=== PATIENT | female | born 1995 | race Caucasian/White ===

== ENCOUNTER 2017-07-13 22:51 | Emergency (ER) | payer OTHER ==
[2017-07-13 22:54] VITALS: BP 140/91; PULSE 69; RESP 18; TEMP 98.3; O2SAT 98
[2017-07-13 23:20] VITALS: BP 136/86; PULSE 73; RESP 16; O2SAT 94
[2017-07-13] MEDS ORDERED: METF1000 PO (23:26)
[2017-07-13] MEDS ORDERED: BUPR150XL PO (23:26)
[2017-07-13] MEDS ORDERED: SPIR100T PO (23:26)
[2017-07-13 23:42] LABS: BILIRUBIN, URINE NEG (NEG); BLOOD, URINE LARGE (NEG); GLUCOSE,URINE NEG (NEG); KETONE, URINE 40 mg/dL (NEG); NITRITE,URINE NEG (NEG); URINE LEUKOCYTE ESTERASE NEG (NEG)
--- NOTE | 2017-07-13 23:42 | PD ---
HPI Chief Complaint: Abdominal Pain Time Seen by Provider: 23:28 Travel History International Travel<30 days: No Contact w/Intl Traveler<30days: No Traveled to known affect area: No History of Present Illness HPI The patient is a 22-year-old female that complains of right flank pain for 14 hours. She also has urinary frequency and urgency as well as some dysuria. She states the pain intensity as a 7/10. She states it is a constant stabbing pain. She denies any nausea, vomiting or fever. She states there is no possibility of , she is not sexually active with men. She has never had any abdominal surgeries and still has her appendix, uterus and gallbladder. PFSH Past Medical History Medical other: Yes (PCOS) Influenza Vaccination: No ?: Not LMP: 07/07/17 Past Surgical History Surgical History: No Previous Surgery Social History Alcohol Use: No Tobacco Use: No Substance Use: No Allergies-Medications (Allergen,Severity, Reaction): Coded Allergies: No Known Allergies (Unverified , 07/13/17) Reported Meds & Prescriptions Reported Meds & Active Scripts Active Ibuprofen 600 Mg Tab 600 Mg PO TID Flomax (Tamsulosin HCl) 0.4 Mg Cap 0.4 Mg PO HS Prochlorperazine Maleate 10 Mg Tab 10 Mg PO Q6H PRN Percocet (Oxycodone-Acetaminophen) 7.5-325 mg Tab 1 Tab PO Q4H PRN Reported Wellbutrin Xl 24 HR (Bupropion HCl) 150 Mg Tab 150 Mg PO DAILY Spironolactone 100 Mg Tab 100 Mg PO DAILY Metformin (Metformin HCl) 1,000 Mg Tab 1,000 Mg PO DAILY With a meal Review of Systems Except as stated in HPI: all other systems reviewed are Neg Physical Exam Narrative GENERAL: The patient is alert, oriented 3 and moderate apparent distress with her right flank discomfort. Her vital signs are normal. SKIN: Focused skin assessment warm/dry. HEAD: Atraumatic. Normocephalic. EYES: Pupils equal and round. No scleral icterus. No injection or drainage. ENT: No nasal bleeding or discharge. Mucous membranes pink and moist. NECK: Trachea midline. No JVD. CARDIOVASCULAR: Regular rate and rhythm. No murmur appreciated. RESPIRATORY: No accessory muscle use. Clear to auscultation. Breath sounds equal bilaterally. GASTROINTESTINAL: Abdomen soft, with tenderness over the right flank and right suprapubic area, nondistended. Hepatic and splenic margins not palpable. No guarding or rebound is present. MUSCULOSKELETAL: No obvious deformities. No clubbing. No cyanosis. No edema. NEUROLOGICAL: Awake and alert. No obvious cranial nerve deficits. Motor grossly within normal limits. Normal speech. PSYCHIATRIC: Appropriate mood and affect; insight and judgment normal. Data Data Last Documented VS Vital Signs Date Time Temp Pulse Resp B/P (MAP) Pulse Ox O2 Delivery O2 Flow Rate FiO2 07/14/17 01:49 53 16 138/86 (103) 100 Room Air 07/13/17 22:54 98.3 Orders Orders Urinalysis - C+S If Indicated (07/13/17 23:28) Complete Blood Count With Diff (07/13/17 23:42) Comprehensive Metabolic Panel (07/13/17 23:42) Ct Abd/Pel W/O Iv Contrast (07/13/17 23:42) Ecg Monitoring (07/13/17 23:42) Iv Access Insert/Monitor (07/13/17 23:42) Morphine Inj (Morphine Inj) (07/13/17 23:45) Ondansetron Inj (Zofran Inj) (07/13/17 23:45) Sodium Chloride 0.9% Flush (Ns Flush) (07/13/17 23:45) Ondansetron Inj (Zofran Inj) (07/14/17 01:00) Sodium Chlor 0.9% 1000 Ml Inj (Ns 1000 M (07/14/17 01:00) Morphine Inj (Morphine Inj) (07/14/17 01:00) Ketorolac Inj (Toradol Inj) (07/14/17 01:00) Tamsulosin (Flomax) (07/14/17 01:15) Labs Laboratory Tests Test 07/13/17 23:30 07/14/17 00:10 Urine Color YELLOW Urine Turbidity SLIGHT Urine pH 6.0 Urine Specific [place] GREATER THAN 1.035 Urine Protein TRACE mg/dL Urine Glucose (UA) NEG mg/dL Urine Ketones 40 mg/dL Urine Occult Blood LARGE Urine Nitrite NEG Urine Bilirubin NEG Urine Leukocyte Esterase NEG Urine RBC 15-19 /hpf Urine WBC 3-5 /hpf Urine Squamous Epithelial Cells 0-5 /hpf Urine Bacteria OCC /hpf Urine Mucus FEW /lpf Microscopic Urinalysis Comment CULT NOT INDICATED White Blood Count 9.8 TH/MM3 Red Blood Count 4.65 MIL/MM3 Hemoglobin 15.1 GM/DL Hematocrit 43.1 % Mean Corpuscular Volume 92.6 FL Mean Corpuscular Hemoglobin 32.5 PG Mean Corpuscular Hemoglobin Concent 35.0 % Red Cell Distribution Width 11.5 % Platelet Count 213 TH/MM3 Mean Platelet Volume 8.3 FL Neutrophils (%) (Auto) 82.6 % Lymphocytes (%) (Auto) 10.0 % Monocytes (%) (Auto) 7.2 % Eosinophils (%) (Auto) 0.1 % Basophils (%) (Auto) 0.1 % Neutrophils # (Auto) 8.1 TH/MM3 Lymphocytes # (Auto) 1.0 TH/MM3 Monocytes # (Auto) 0.7 TH/MM3 Eosinophils # (Auto) 0.0 TH/MM3 Basophils # (Auto) 0.0 TH/MM3 CBC Comment DIFF FINAL Differential Comment Blood Urea Nitrogen 14 MG/DL Creatinine 1.30 MG/DL Random Glucose 96 MG/DL Total Protein 8.1 GM/DL Albumin 4.6 GM/DL Calcium Level 9.0 MG/DL Alkaline Phosphatase 74 U/L Aspartate Amino Transf (AST/SGOT) 13 U/L Alanine Aminotransferase (ALT/SGPT) 15 U/L Total Bilirubin 0.6 MG/DL Sodium Level 134 MEQ/L Potassium Level 3.9 MEQ/L Chloride Level 100 MEQ/L Carbon Dioxide Level 23.2 MEQ/L Anion Gap 11 MEQ/L Estimat Glomerular Filtration Rate 50 ML/MIN MDM Medical Decision Making Medical Screen Exam Complete: Yes Emergency Medical Condition: Yes Medical Record Reviewed: Yes Interpretation(s) The CT abdomen/pelvis without IV contrast shows severe right sided hydronephrosis with a 3 mm calculus at the UPJ. A UPJ stricture or focal abnormality cannot be excluded since the overall degree of obstruction is somewhat disproportionate to the size of the calculus. Also noted are multiple additional 3-5 mm calyceal calculi in the right inferior pole. The urine shows specific gravity greater than 1.035, large occult blood, 40 ketones, 15-19 red cells and occasional bacteria and is otherwise normal and culture is not indicated. The CBC is normal. The complete metabolic profile shows a sodium of 134, creatinine 1.3, GFR 50 but is otherwise unremarkable. Differential Diagnosis Right ureteral stone, urinary tract infection, ureter stricture/kinking, electrolyte disorder, appendicitis, pyelonephritis, colitis, cholecystitis Narrative Course The patient has a right ureteral stone. It is now 0206 the patient feels comfortable going home. She will get prescriptions for Flomax, prochlorperazine , Motrin and Percocet. She needs to increase liquid intake. She needs to call urology later on today. Additional Instructions: As we discussed, call urology later on today to set up an appointment. Do not drink alcohol or drive with the Percocet or prochlorperazine. Scripts Ibuprofen (Ibuprofen) 600 Mg Tab 600 MG PO TID, #44 TAB 0 Refills Prov: Boom Schreiber MD 07/14/17 Tamsulosin (Flomax) 0.4 Mg Cap 0.4 MG PO HS for Manage Prostate Problems, #30 CAP 0 Refills Prov: Boom Schreiber MD 07/14/17 Prochlorperazine Maleate (Prochlorperazine Maleate) 10 Mg Tab 10 MG PO Q6H Y for NAUSEA OR VOMITING, #30 TAB 0 Refills Prov: Boom Schreiber MD 07/14/17 Oxycodone-Acetaminophen (Percocet) 7.5-325 mg Tab 1 TAB PO Q4H Y for PAIN, #30 TAB 0 Refills Prov: Boom Schreiber MD 07/14/17 Disposition: 01 DISCHARGE HOME Condition: Stable Boom Schreiber MD Jul 13, 2017 23:42
[2017-07-13] MEDS ORDERED: MORPHINE SULFATE 4 MG/ML INJ IV PUSH ONE (23:45)
[2017-07-13] MEDS ORDERED: ONDANSETRON HCL 4 MG/2 ML VIAL IV PUSH ONE (23:45)
[2017-07-13] MEDS ORDERED: SODIUM CHLORIDE 0.9% FLUSH 10 ML FLUSH IVF PRN (23:45)
[2017-07-13 23:49] LABS: MUCUS URINE FEW /lpf (OCC); URINE COLOR YELLOW (YELLW/STRAW)
[2017-07-13 23:50] LABS: BACTERIA, URINE OCC /hpf; RBC, URINE 15-19 /hpf (0-3)
[2017-07-13 23:51] LABS: SQUAMOUS EPITHELIAL CELL URINE 0-5 /hpf (0-5)
--- NOTE | 2017-07-14 00:21 | RADRPT ---
EXAM DATE/TIME: 07/13/2017 23:54 [facility] COMPARISON: No previous studies available for comparison. INDICATIONS : Right flank pain. ORAL CONTRAST: No oral contrast ingested. RADIATION DOSE: 15.64 CTDIvol (mGy) MEDICAL HISTORY : None SURGICAL HISTORY : None. ENCOUNTER: Initial ACUITY: 1 day PAIN SCALE: 7/10 LOCATION: Right flank TECHNIQUE: Volumetric scanning of the abdomen and pelvis was performed. Using automated exposure control and ad justment of the mA and/or kV according to patient size, radiation dose was kept as low as reasonably achievable to obtain optimal diagnostic quality images. DICOM format image data is available electro nically for review and comparison. FINDINGS: LOWER LUNGS: The visualized lower lungs are clear. LIVER: Homogeneous density without lesion. There is no dilation of the biliary tree. No calcified gallston es. SPLEEN: Normal size without lesion. PANCREAS: Within normal limits. KIDNEYS: There is severe right-sided hydronephrosis. There is a 3 mm calculus near the UPJ a and the ureter mo re distally appears normal in caliber. Multiple small 3-5 mm calyceal calculi in the inferior pole of the right kidney. Left kidney appears unremarkable. ADRENAL GLANDS: Within normal limits. VASCULAR: There is no aortic aneurysm. BOWEL/MESENTERY: The stomach, small bowel, and colon demonstrate no acute abnormality. Appendix is normal. There is n o free intraperitoneal air or fluid. ABDOMINAL WALL: Within normal limits. RETROPERITONEUM: There is no lymphadenopathy. BLADDER: No wall thickening or mass. REPRODUCTIVE: Within normal limits. INGUINAL: There is no lymphadenopathy or hernia. MUSCULOSKELETAL: Within normal limits for patient age. CONCLUSION: 1. Severe right-sided hydronephrosis with 3 mm calculus at the UPJ. Overall degree of obstruction is somewhat disproportionate to the size of the calculus. A UPJ stricture or focal abnormality cannot be excluded. 2. Multiple additional 3-5 mm calyceal calculi in the right inferior pole. Markos Carreon MD on July 14, 2017 at 0:15 Board Certified Radiologist. This report was verified electronically.
[2017-07-14 00:30] VITALS: BP 134/86; PULSE 52; RESP 18; O2SAT 99
[2017-07-14] MEDS ORDERED: KETOROLAC TROMETHAMINE 60 MG/2 ML (IM) VIAL IVP ONE (01:00)
[2017-07-14] MEDS ORDERED: MORPHINE SULFATE 2 MG/ML INJ IV PUSH ONE (01:00)
[2017-07-14] MEDS ORDERED: ONDANSETRON HCL 4 MG/2 ML VIAL IV ONE (01:00)
[2017-07-14] MEDS ORDERED: PERC7.5T13 PO (01:03)
[2017-07-14] MEDS ORDERED: PROC10TA PO (01:04)
[2017-07-14] MEDS ORDERED: TAMS5CAP PO (01:04)
[2017-07-14] MEDS ORDERED: IBUP-232 PO (01:04)
[2017-07-14] MEDS ORDERED: TAMSULOSIN HCL 0.4 MG CAP PO ONE (01:15)
[2017-07-14] MEDS: SODIUM CHLOR 0.9% 1000 ML INJ 1,000 ML IV SCH ×2 (01:20→02:20)
[2017-07-14 01:25] LABS: AUTOMATED NEUTROPHIL # 8.1 TH/MM3 (1.8-7.7); BASOPHIL % 0.1 % (0.0-2.0); EOSINOPHIL % 0.1 % (0.0-4.0); HEMATOCRIT 43.1 % (35.0-46.0); HEMOGLOBIN 15.1 GM/DL (11.6-15.3); MEAN CELL VOLUME 92.6 FL (80.0-100.0); MEAN CORPUSCULAR HEMOGLOBIN 32.5 PG (27.0-34.0); MEAN PLATELET VOLUME 8.3 FL (7.0-11.0); MONO % 7.2 % (0.0-8.0); MONOCYTE # 0.7 TH/MM3 (0-0.9); NEUT % 82.6 % (16.0-70.0); PLATELET COUNT 213 TH/MM3 (150-450); RED BLOOD COUNT 4.65 MIL/MM3 (4.00-5.30); RED CELL DISTRIBUTION WIDTH 11.5 % (11.6-17.2); WHITE BLOOD COUNT 9.8 TH/MM3 (4.0-11.0)
[2017-07-14 01:31] LABS: CHLORIDE 100 MEQ/L (98-107); SODIUM (NA) 134 MEQ/L (136-145)
[2017-07-14 01:35] LABS: ALBUMIN 4.6 GM/DL (3.4-5.0); BICARBONATE 23.2 MEQ/L (21.0-32.0); BLOOD UREA NITROGEN 14 MG/DL (7-18); GLUCOSE,RANDOM 96 MG/DL (74-106)
[2017-07-14 01:38] LABS: ALT (GPT) 15 U/L (10-53); AST (GOT) 13 U/L (15-37)
[2017-07-14 01:39] LABS: GLOMERULAR FILTRATION RATE 50 ML/MIN (>89)
[2017-07-14 01:40] LABS: TOTAL BILIRUBIN ADULT 0.6 MG/DL (0.2-1.0); TOTAL PROTEIN 8.1 GM/DL (6.4-8.2)
[2017-07-14 01:41] LABS: ALKALINE PHOSPHATASE 74 U/L (45-117)
[2017-07-14 01:49] VITALS: BP 138/86; PULSE 53; RESP 16; O2SAT 100
[2017-07-14 02:18] VITALS: RESP 16
[2017-07-14 02:46] VITALS: BP 119/70
== END 2017-07-14 02:49 | disposition home or self-care (01) ==
LOC: PHED 22:51
DX: N20.1 Calculus of ureter (principal); R30.0 Dysuria
CPT/HCPCS: 74176; 80053; 81001; 85025; 96361; 96374; 96375; 99284; J1885; J2270; J2405; J7030